=== PATIENT | male | born 1980 | race Caucasian/White ===

== ENCOUNTER 2017-07-18 18:55 | Emergency (ER) | payer SELFPAY ==
[~2017-07-18] VITALS: Ht 182.9 cm; Wt 124.0 kg
[2017-07-18 18:56] VITALS: BP 171/103; PULSE 107; RESP 18; TEMP 98.6; O2SAT 96
[2017-07-18] MEDS ORDERED: IBUP1TAB5 PO (19:10)
--- NOTE | 2017-07-18 20:07 | PD ---
HPI Chief Complaint: Laceration/Skin Injury Time Seen by Provider: 19:46 Travel History International Travel<30 days: No Contact w/Intl Traveler<30days: No Traveled to known affect area: No History of Present Illness HPI 37 -year-old male here with laceration to the right third digit. Injury occurred prior to arrival. Cut finger on hedge of canned vegetables. Reports normal sensation of full range of motion. Tetanus immunization is up-to-date. Symptom severity mild. PFSH Past Medical History Medical History: Denies Significant Hx Diminished Hearing: No Immunizations Current: Yes Influenza Vaccination: No Past Surgical History Surgical History: No Previous Surgery Social History Alcohol Use: Yes (6 pk week) Tobacco Use: Yes (1/2 pk) Substance Use: No Allergies-Medications (Allergen,Severity, Reaction): Coded Allergies: No Known Allergies (Unverified , 07/18/17) Reported Meds & Prescriptions Reported Meds & Active Scripts Active Reported Ibuprofen 400 Mg Tab 400 Mg PO Q4H PRN Review of Systems Except as stated in HPI: all other systems reviewed are Neg Physical Exam Narrative GENERAL: Alert well-appearing male. SKIN: 1.5 CM laceration to the right third digit distal/medial aspect. No tendon injury. HEAD: Normocephalic. EYES: No injection or drainage. NECK: Supple, trachea midline. No lymphadenopathy. MUSCULOSKELETAL: No cyanosis, or edema. Right hand1.5 CM laceration to the right third digit distal/medial aspect. No tendon injury. Full range of motion and normal sensation. Brisk cap refill. Data Data Last Documented VS Vital Signs Date Time Temp Pulse Resp B/P (MAP) Pulse Ox O2 Delivery O2 Flow Rate FiO2 07/18/17 18:56 98.6 107 18 171/103 (125) 96 Orders Orders Ed Discharge Order (07/18/17 20:07) MDM Medical Decision Making Medical Screen Exam Complete: Yes Emergency Medical Condition: Yes Differential Diagnosis Laceration, tendon injury, ligament injury Narrative Course 37-year-old male with laceration to the right third digit. Extremities is neurovascularly intact. No tendon injury. Laceration repair performed. Procedures Procedure Narrative LACERATION LOCATION: Right third digit LENGTH: 1.5 cm NUMBER OF STITCHES/MERRY: 4 REPAIR: The area of the laceration was prepped with Betadine and sterilely draped. The laceration was infiltrated with 1% lidocaine. The wound was copiously irrigated and explored without evidence of foreign body, tendon injury or neurovascular injury. The wound was closed using 5-0 Ethilon. This was a SINGLE layer repair. A sterile dressing was applied. The patient was advised to keep the dressing clean and dry. Patient tolerated the procedure well. Diagnosis Primary Impression: Laceration of finger Qualified Codes: S61.212A - Laceration without foreign body of right middle finger without damage to nail, initial encounter Referrals: [facility] Additional Instructions: Do not submerge the wound in water. Cleansed the area daily with soap and water and apply a thin layer of antibiotic ointment. Sutures need to be removed in 7-10 days. Return prior to develop new or worsening symptoms Disposition: 01 DISCHARGE HOME Condition: Stable Ronda Santos Jul 18, 2017 20:06
== END 2017-07-18 20:14 | disposition home or self-care (01) ==
LOC: PHEFT 18:55
DX: S61.212A Laceration without foreign body of right middle finger without damage to nail, initial encounter (principal); W26.8XXA Contact with other sharp object(s), not elsewhere classified, initial encounter; Y93.G3 Activity, cooking and baking; Y92.000 Kitchen of unspecified non-institutional (private) residence as the place of occurrence of the external cause; Z72.0 Tobacco use; Z72.89 Other problems related to lifestyle
CPT/HCPCS: 12001